=== PATIENT | female | born 1930 | race Caucasian/White ===

== ENCOUNTER → 2016-04-07 | Day surgery (SDC) | payer MEDICARE ==
[~2016-04-07] VITALS: Ht 165.1 cm; Wt 51.9 kg
[~2016-04-07] MED LIST: ASPIRIN LO-DOSE81 MG PO; BACTRIM DS TAB1 EACH PO; BISMUTH SUBGALLATE PO; CITRACAL + D E1 EACH PO; ESTROPIPATE0.75 MG PO; FISH OIL 1,2001 EAC1 PO; NORVASC5 MG PO; PROTONIX40 MG PO
--- NOTE | ~2016-04-07 | OR ---
PATIENT'S NAME: ARIN MANCUSO [facility] AGE: 85 Y [address] ROOM: [place] [address] LOCATION: GEND ADMIT DATE: 04/07/2016 OR/Procedure Report DISCHARGE DATE: FAMILY PHYSICIAN: Kaiden Tobar MD ATTENDING PHYSICIAN: CHRISTIANA HOUSER SURGEON: Christiana Houser MD CENTRAL SUPPLY AIDE: Gaby Mendez, manufacturing technician. DATE OF PROCEDURE: 04/07/2016 NAME OF PROCEDURE: 1. Bronchoscopy with endobronchial ultrasound and fine-needle aspiration of the subcarinal node. 2. Diagnostic bronchoscopy. INDICATIONS: 1. Mediastinal adenopathy. 2. History of colorectal cancer. 3. Lung mass. The bronchoscopy was requested by the patient's oncologist, Dr. Fan. The patient has an enlarging right upper lobe lung mass and was already diagnosed with colorectal cancer. The etiology of the subcarinal adenopathy is unclear, as the patient might have concomitant lung cancer. CONSENT: Consent was obtained from the patient after all the indications, risks, benefits, and alternatives were explained at length. The patient verbalized understanding and signed the informed consent. PROCEDURE DESCRIPTION: The patient was taken to the endoscopy suite, where she was intubated with a #8 endotracheal tube by the Anesthesia team. Please see their records for further details. General anesthesia was started. Local anesthesia was obtained with 2% lidocaine solution instillations. FINDINGS: I started by doing the regular diagnostic bronchoscopy with a smaller bronchoscope. I performed a careful examination down to the subsegmental levels. There was no evidence of lung mass, old or new blood clots, or any other significant abnormalities. Afterwards, I removed the regular diagnostic bronchoscope and I used the bronchoscope with endobronchial ultrasound. The patient had evidence of a very large subcarinal node of approximately 7 cm in diameter. I performed 3 fine needle aspirates with ultrasound guidance. The first aspirate was confirmed to have malignant cells by the cytology photo optics technician who was present in the room. I performed 2 additional fine needle aspirates for adequate material for immunohistochemistry and genetic studies. There was minimal amount of bleeding that stopped at the end of the procedure. I repeated a diagnostic bronchoscopy at the very end of the procedure and the patient did not have any evidence of active bleeding. PATIENT'S NAME: ARIN MANCUSO [facility] AGE: 85 Y [address] ROOM: [place] [address] LOCATION: GEND ADMIT DATE: 04/07/2016 OR/Procedure Report DISCHARGE DATE: FAMILY PHYSICIAN: Kaiden Tobar MD ATTENDING PHYSICIAN: CHRISTIANA HOUSER COMPLICATIONS: None. ESTIMATED BLOOD LOSS: Less than 5 mL. POSTPROCEDURE DIAGNOSES: 1. Malignant mediastinal adenopathy. 2. History of colorectal cancer. 3. Lung mass. SPECIMENS: The fine needle aspirate will be sent for Cytology and Pathology studies. CHRISTIANA HOUSER MD RFVesta/modl /[id number] d: 04/07/16 2234 t: 04/08/16 0714, OPERATIVE SUMMARY
== END | disposition disaster alternative care site (69) ==
LOC: GPOC 03-31 14:00 → GEND 11:59 → GPOC 12:00
PROC: 07B74ZX Excision of Thorax Lymphatic, Percutaneous Endoscopic Approach, Diagnostic (ICD-10-PCS; principal; 2016-04-07)
DX: C77.1 Secondary and unspecified malignant neoplasm of intrathoracic lymph nodes (principal); I10 Essential (primary) hypertension; M19.90 Unspecified osteoarthritis, unspecified site; Z98.41 Cataract extraction status, right eye; Z85.038 Personal history of other malignant neoplasm of large intestine; Z88.5 Allergy status to narcotic agent; Z96.1 Presence of intraocular lens; Z90.49 Acquired absence of other specified parts of digestive tract; Z98.890 Other specified postprocedural states
CPT/HCPCS: J7030

== ENCOUNTER → 2016-08-05 | Outpatient (CLI) | payer MEDICARE | END | disposition disaster alternative care site (69) | LOC: GRAD 08:27 | DX: N17.9 Acute kidney failure, unspecified (principal) ==

== ENCOUNTER 2016-08-06 16:37 | Emergency (ER) | payer MEDICARE ==
--- NOTE | ~2016-08-06 | ER ---
PATIENT'S NAME: ARIN MANCUSO [facility] AGE: 86 Y [address] ROOM: [place] [address] LOCATION: [facility] ADMIT DATE: 08/06/2016 ER/Outpatient Report DISCHARGE DATE: 08/06/2016 FAMILY PHYSICIAN: Kadien Tobar MD ATTENDING PHYSICIAN: Diego Rao TIME SEEN: 1700 hours. CHIEF COMPLAINT: Nausea. HISTORY OF PRESENT ILLNESS: The patient is an 86-year-old female who said yesterday she had a bicarb infusion done by Dr. Tobar because of a rising creatinine. The patient then following infusion started having nausea and dry heaves. She denied any abdominal pain or diarrhea. ALLERGIES: SHE IS ALLERGIC TO CODEINE. CURRENT MEDICATIONS: See copied list which was reviewed. MEDICAL HISTORY: Lung cancer. She has also had a colon cancer and hypertension. SURGERIES: Ileostomy. SOCIAL HISTORY: Nonsmoker. Denies any alcohol use. REVIEW OF SYSTEMS: GENERAL: No complaints of any fevers or chills. HEAD AND EENT: Vision is corrected. She states her mouth has been drier take off tender than usual today. RESPIRATORY: No cough. No shortness of breath. CARDIOVASCULAR: Denies any chest pain or palpitations. GASTROINTESTINAL: Severe nausea. GENITOURINARY: She has been voiding frequently. She is supposed to drink lots of fluids. PHYSICAL EXAMINATION: VITAL SIGNS: Blood pressure was 193/89, her temperature is 97.9, her pulse is PATIENT'S NAME: ARIN MANCUSO [facility] AGE: 86 Y [address] ROOM: [place] [address] LOCATION: [facility] ADMIT DATE: 08/06/2016 ER/Outpatient Report DISCHARGE DATE: 08/06/2016 FAMILY PHYSICIAN: Kaiden Tobar MD ATTENDING PHYSICIAN: Diego Rao 89, and her O2 saturations were 94% on room air. GENERAL APPEARANCE: Appears somewhat younger than her stated age. She is alert and cooperative. HEAD AND EENT: Tongue. Oral membranes were dry. Sclerae were clear. LUNGS: Lungs sound clear. HEART: Rhythm appeared regular. ABDOMEN: She has an ileostomy in place. There was stool present. Otherwise, abdomen was soft and nontender. SKIN: Turgor appeared adequate. NEURO: She was oriented x3. LAB WORK: Sodium was low at 124 as well as her chloride; glucose 145; her BUN was 38; creatinine was 2.1, evidently it was 2.6 yesterday. CBC: White count was 5.5 and hemoglobin 12. ASSESSMENT: 1. Severe nausea. 2. Hyponatremia. PLAN: I discussed the patient with Dr. Quijano. The patient was given a liter of normal saline. She was given 4 of Zofran. She said she felt much better. The patient discharged home with a script for Zofran 4 mg every 6 hours. Follow up tomorrow if symptoms do not improve, otherwise on Monday. Touch base with Dr. Tobar. The patient verbalized understanding of her take-home instructions. DEEPTHI NEGRON FOR DO SEBASTIEN JERRY/broderick /[id number] d: 08/06/16 2339 t: 08/12/16 1222, OUTPATIENT REPORT
[2016-08-06 17:19] LABS: HEMATOCRIT 36.4 % (30.0-46.0); HEMOGLOBIN 12.6 g/dL (10.0-15.0); MCH 29.4 pg (27.0-34.0); MCHC 34.6 gm/dL (32.0-36.5); MCV 84.8 fl (83.0-98.0); MPV 8.6 fl (9.4-12.4); PLATELET COUNT 302 K/uL (150-450); RBC 4.29 M/uL (3.00-5.00); RDW-CV 13.5 % (11.9-14.6); WBC 5.5 K/uL (4.0-11.0)
[2016-08-06 17:42] LABS: ALBUMIN 3.1 gm/dL (3.5-5.0); CALCIUM 8.9 mg/dL (8.5-10.5); CREATININE 2.1 mg/dL (0.5-1.1); TOTAL BILIRUBIN 0.3 mg/dL (0.0-1.5); TOTAL PROTEIN 7.4 g/dL (6.0-8.4)
[2016-08-06 17:54] LABS: ABSOLUTE NEUTROPHIL CT (ANC) 4.6 K/uL (1.8-7.8); BANDED NEUTROPHIL # 0.4 K/uL (0.0-0.1); BANDED NEUTROPHILS % 7 %; LYMPHOCYTE # 0.3 K/uL (0.8-4.0); LYMPHOCYTE % 6 %; MONOCYTE # 0.6 K/uL (0.0-1.0); SEGMENTED NEUTROPHIL # 4.2 K/uL (1.8-7.8); SEGMENTED NEUTROPHIL % 77 %
== END 2016-08-06 18:26 | disposition disaster alternative care site (69) ==
LOC: GMED 16:37
PROVIDERS: Physician Assistant Medical
DX: E87.1 Hypo-osmolality and hyponatremia (principal); I10 Essential (primary) hypertension; Z88.5 Allergy status to narcotic agent; Z93.2 Ileostomy status; Z79.82 Long term (current) use of aspirin; Z79.899 Other long term (current) drug therapy; Z85.038 Personal history of other malignant neoplasm of large intestine
CPT/HCPCS: J2405; J7030